=== PATIENT | female | born 1995 | race Two or more races ===

== ENCOUNTER 2022-09-25 12:16 | Emergency (ER) | payer OTHER ==
[~2022-09-25] VITALS: Ht 160 cm; Wt 82.1 kg
--- NOTE | 2022-09-25 12:30 | NUR ---
C/O COUGH CONGESTION FEVER AND CHIILLS X 4 DAYS.
[2022-09-25] MEDS ORDERED: ALBUTEROL FS 2.5 MG/0.5 ML VIAL.NEB NEB ONE (13:30)
[2022-09-25] MEDS ORDERED: predniSONE 50 MG TABLET PO ONE (13:30)
[2022-09-25] MEDS ORDERED: KETOROLAC TROMETHAMINE INJ 60 MG/2 ML VIAL IM ONE (13:30)
[2022-09-25] MEDS ORDERED: predniSONE 20 MG TABLET ONE (13:40)
[2022-09-25] MEDS ORDERED: KETOROLAC TROMETHAMINE INJ 30 MG/ML VIAL ONE (13:40)
--- NOTE | 2022-09-25 13:50 | NUR ---
CALLED RT FOR BREATHING TREATMENT
--- NOTE | 2022-09-25 14:01 | NUR ---
COVID / RAPID INFLU / RSV / RAPID STREP . SWAB TAKEN SENT TO LAB AND PROPERLY LABELED.
[2022-09-25] MEDS ORDERED: ALBUTEROL FS 2.5 MG/0.5 ML VIAL.NEB ONE (14:06)
--- NOTE | 2022-09-25 14:15 | NUR ---
RT AT BEDSIDE FOR TX
[2022-09-25] MEDS ORDERED: LORA10TA68 PO (15:04)
[2022-09-25] MEDS ORDERED: PRED50TA PO (15:04)
[2022-09-25] MEDS ORDERED: IBUP-1955 PO (15:04)
[2022-09-25] MEDS ORDERED: ALBU18HF2 INH (15:06)
--- NOTE | 2022-09-25 15:52 | NUR ---
Patient discharged to home in stable condition. Written and verbal after care instructions given. Patient verbalizes understanding of instruction.
[2022-09-25 15:53] VITALS: BP 134/81
== END 2022-09-25 15:53 | disposition home or self-care (01) ==
LOC: ER 12:23
DX: J06.9 Acute upper respiratory infection, unspecified (principal); R05.9 Cough, unspecified; J45.909 Unspecified asthma, uncomplicated; Z20.822 Contact with and (suspected) exposure to COVID-19
CPT/HCPCS: 99283; 87426; 96372; 87804 ×2; 87880; 87420; 94640; J1885; C9803; 86403-TC

== ENCOUNTER 2022-10-01 04:17 | Emergency (ER) | payer OTHER ==
[~2022-10-01] VITALS: Ht 160 cm; Wt 79.4 kg
[~2022-10-01 04:17] MED LIST: ALBU18HF2 INH; IBUP-1955 PO; LORA10TA68 PO; PRED50TA PO
--- NOTE | 2022-10-01 04:32 | NUR ---
BIBS FOR PERSISTENT COUGH. WAS SEEN RECENTLY, DX WITH FLU BUT RETURNED DUE TO COUGH NOT IMPROVING, -SOB, O2SAT 98% ON RA. TO ER 19 FOR EVAL. VITALS CHECKED.
--- NOTE | 2022-10-01 04:56 | NUR ---
XR DONE AT BEDSIDE
[2022-10-01] MEDS ORDERED: predniSONE 20 MG TABLET ONE (04:58)
[2022-10-01] MEDS ORDERED: GUAIFENESIN/CODEINE 10 ML UDC ONE (04:58)
[2022-10-01] MEDS ORDERED: GUAIFENESIN/CODEINE 10 ML UDC PO PRN (05:00)
[2022-10-01] MEDS ORDERED: predniSONE 50 MG TABLET PO ONE (05:00)
[2022-10-01] MEDS ORDERED: AZIT250T PO (05:12)
[2022-10-01] MEDS ORDERED: PRED20TA PO (05:12)
[2022-10-01] MEDS ORDERED: ALBU8.5H8 IH (05:12)
[2022-10-01] MEDS ORDERED: GUAI5SYR4 PO (05:12)
[2022-10-01] MEDS ORDERED: ALBU0.633 IH (05:12)
--- NOTE | 2022-10-01 05:25 | NUR ---
Patient discharged to home in stable condition. Written and verbal after care instructions given. Patient verbalizes understanding of instruction.
[2022-10-01 05:40] VITALS: BP 133/59
== END 2022-10-01 05:30 | disposition home or self-care (01) ==
LOC: ER 04:23
DX: J40 Bronchitis, not specified as acute or chronic (principal); E03.9 Hypothyroidism, unspecified; Z79.51 Long term (current) use of inhaled steroids; Z79.899 Other long term (current) drug therapy
CPT/HCPCS: 99283; 71045; J7512